=== PATIENT | female | born 1995 | race Caucasian/White ===

== ENCOUNTER 2018-11-09 18:52 | Emergency (ER) | payer SELFPAY ==
[~2018-11-09] VITALS: Ht 154.9 cm; Wt 69.0 kg
[2018-11-09] MEDS ORDERED: PERCOCET 5/325M1 TAB PO (20:02)
[2018-11-09] MEDS ORDERED: PENICILLN VK500 MG PO (20:02)
[2018-11-09 20:05] VITALS: BP 139/81
== END 2018-11-09 20:05 | disposition home or self-care (01) | DRG 158 ==
LOC: ED 18:52
DX: K02.9 Dental caries, unspecified (principal); M84.68XA Pathological fracture in other disease, other site, initial encounter for fracture